=== PATIENT | female | born 1940 | race Caucasian/White ===

== ENCOUNTER 2023-09-13 02:32 | Emergency (ER) | payer OTHER, SELFPAY ==
[2023-09-13 02:34] VITALS: BP 187/86
[2023-09-13 02:35] VITALS: BP 187/86
[2023-09-13 02:44] VITALS: BMI 23.9
--- NOTE | 2023-09-13 02:52 | ED.MUSCINJ ---
Addendum entered and electronically signed by WILL Monte 09/13/23 09:54:
[facility] does see a medial tibial plateau fx. I left message on pt's voicemail requesting call back
Original Note:
HPI-Injury
<YOSELIN Murillo - Last Filed: 09/13/23 06:13>
General
Chief Complaint: Musculo-Skeletal Complaint
Source: patient
Exam Limitations: none
Time Seen by Provider: 09/13/23 02:41
Nursing documentation reviewed up to this point in time: agreed with
Travel History
Have you had any contact with someone who has COVID-19?: No
Do you have any symptoms of coronavirus? Fever > 100 degrees, chills, cough, shortness of breath, sore throat, loss of taste or smell, muscle aches, or headache?: No
History of Present Illness-Injury
Is this injury a work related problem?: No
Is pt an associate of [facility]?: No
Initial Injury comments:
This is a 83 year old female with history of DVT (on Apixaban for prophylaxis), hypothyroidism, HTN, RA, glaucoma who presents to the ED via ambulance due to a fall injury x1 day. She fell yesterday when she was opening her front door. She got
tangled with her walker causing her to fall down. She landed on her left knee on carpet. She was able to crawl to a nearby chair and lift herself up. She denies hitting her head or LOC. She is having pain and swelling with her left knee. She applied
ice and heat after that provided minimal relief. She took Tylenol around 6pm today. She is on Apixaban for DVT prophylaxis. Last DVT was in her RLE in 04/2022. Patient lives alone in her own house. She denies lightheadedness/dizziness, headache,
chest pain, shortness of breath.
Past History
<YOSELIN Murillo - Last Filed: 09/13/23 06:13>
Past History
ED Past Medical History: HTN, Hypothyroidism, Psychiatric (Anxiety), Other (Glaucoma, PVC's, RA, ) and Other (Chronic low back issues recently diagnosed rheumatoid arthritis. Extensive DVT)
ED Past Surgical History: Other (Left popliteal stent)
Social History
Tobacco: Non-smoker
Alcohol: None
Personal:
Living: alone
Family History
Family History: Negative Diabetes, Hypertension or CAD
Review of Systems
<YOSELIN Murillo - Last Filed: 09/13/23 06:13>
Review of Systems
Allergies reviewed?: Yes
All Other Systems: Not applicable
Constitutional: Reports no symptoms
EENT: Reports no symptoms
Respiratory: Reports no symptoms
Cardiac: Reports no symptoms
ABD/GI: Reports no symptoms
: Reports no symptoms
Musculoskeletal: Reports joint pain (Left knee) and joint swelling (Left knee)
Skin: Reports no symptoms
Neurological: Reports no symptoms
Endocrine: Reports no symptoms
Hematologic/Lymphatic: Reports no symptoms
Psychiatric: Reports no symptoms
Phy Exam
<YOSELIN Murillo - Last Filed: 09/13/23 06:13>
General Physical Exam
General Presentation: well appearing and no apparent distress
General Skin: warm and dry
General Habitus: normal
General Mental: alert
General Hydration: appears well hydrated
ENT Exam
ENT Exam: EOMI, pharynx normal, neck supple and normocephalic
Eye Exam
Eye Exam: PERRL, cornea clear and conjunctiva normal
Cardiovascular Exam
Cardiovascular Exam: regular rate/rhythm, no edema, no murmur and normal peripheral pulses
Pulmonary Exam
Pulmonary Exam: lungs clear, no respiratory distress, no rales, no crackles, no rhonchi, no stridor, no wheezing and no cough
Gastrointestinal Exam
Gastrointestinal Exam: normal bowel sounds, non tender, soft, no organomegaly, no pulsatile mass and non distended
Neurological Exam
Neurological Exam: alert, oriented x3, no motor deficits and speech normal
Musculoskeletal Exam
Musculoskeletal Exam: joint swelling (Medial aspect of left knee, limited L knee flexion) and other (TTP along medial aspect of left knee)
Skin Exam
Skin Exam: normal color, warm/dry, no rash and no petechia
Psychiatric Exam
Psychiatric Exam: normal mood/affect
Injury Course
<YOSELIN Murillo - Last Filed: 09/13/23 06:13>
Orders/Labs/Results
Orders:
Orders
09/13/23 03:02
CR Knee - Left 1 Or 2 Views Urgent
Comment:
Reason For Exam: Fall injury
09/13/23 03:04
HYDROmorphone [Dilaudid] 0.5 mg IM NOW STA
<Esme Gould DO - Last Filed: 09/13/23 06:14>
Orders/Labs/Results
Orders:
Orders
09/13/23 03:02
CR Knee - Left 1 Or 2 Views Urgent
Comment:
Reason For Exam: Fall injury
09/13/23 03:04
HYDROmorphone [Dilaudid] 0.5 mg IM NOW STA
<YOSELIN Murillo - Last Filed: 09/13/23 06:13>
MDM/Problems Addressed
Differential Diagnosis Includes:
Patellar dislocation vs knee sprain
<Esme Gould DO - Last Filed: 09/13/23 06:14>
*Radiology
Radiology exam reviewed: preliminary read by ED provider (X-ray shows mild to moderate DJD, mild joint effusion but no evidence of fracture.)
*Pulse Oximetry
Patient hypoxic: no
*Critical Care Note
Total Time (30-74mins, 75-104mins- exclusive of procedures): Not Applicable
ED Attending Note
<YOSELIN Murillo - Last Filed: 09/13/23 06:13>
-
Portions of this chart may have been created with voice recognition software.� Occasional wrong word or��sound alike� substitutions may have occurred due to the inherent limitations of voice recognition software.
<Esme Gould DO - Last Filed: 09/13/23 06:14>
ED Attending Note
Patient seen and examined by attending physician: Yes
I performed the substantive portion of visit, reviewed & personally made and approve the management plan that is documented in note by myself or ROB.: Yes
I performed a history and physical exam of patient and discussed management with resident, I reviewed resident's note and agree with documented findings and plan of care.: Yes
ED Attending Note:
This is an 83-year-old woman who resides at home, independently. 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 She has history of rheumatoid arthritis, ambulatory dysfunction and
chronically uses a walker to ambulate. Yesterday afternoon while using her walker, attempting to open the front door she lost her balance, falling to her left side and taking her walker with her, injuring her left knee which she states was
'underneath of her'
She denies head injury nor loss of consciousness. She was able to crawl to her chair and pull herself up and sit into her chair. She has been able to to ambulate with her walker since this afternoon but limited ambulation with significant left
knee pain with weightbearing. She took a dose of Tylenol around 8 PM before bed. She complains of persistent, increasing pain and swelling of her left knee.
She denies hip pain nor lower leg/calf pain. No foot pain, no numbness nor tingling. She denies back pain, no abdominal pain, no chest pain, no dizziness or lightheadedness.
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
this most recent fall.
TRAUMA EXAM:
VITAL SIGNS: Vital signs reviewed, cooperative
DISTRESS: No active disease
EYES: Pupils reactive, no orbital trauma
NOSE: No deformity or epistaxis
FACE AND SCALP: No scalp or facial trauma, external canals no blood
NECK: Supple nontender
BACK: Back nontender, pelvis stable to compression
RESPIRATORY: No distress, breath sounds normal, no tender chest wall
CARDIAC: No murmur, pulses equal and strong
ABDOMEN: Soft nontender bowel sounds normal
SKIN: Skin intact no bleeding, color normal
EXTREMITIES: There is mild to moderate effusion anteromedial aspect of the left knee with moderate tenderness about the left knee. Mildly restricted range of motion related to pain but no crepitus, no palpable bony abnormality, no gross
deformities. There is no tenderness to the thigh nor hip nor lower leg. Peripheral pulses are full and equal bilaterally. No clubbing nor cyanosis nor edema.
NEUROLOGICAL: Alert, oriented, no motor deficits
PSYCH: Mood affect normal
Concern for left knee strain/internal derangement, other consideration is fracture.
Will check x-ray.
Patient is neurovascularly intact, bright and alert, has full recollection of fall denying head injury and reports no headache thus CT of the head is not indicated.
As she is chronically maintained on Eliquis, NSAIDs are to be avoided.
Ice has been applied to left knee and will trial an IM dose of Dilaudid 0.5 mg.
09/13/2023 0606 AM
Patient resting comfortably, much more comfortable after an IM dose of Dilaudid.
X-ray shows no evidence of fracture nor dislocation. Mild to moderate DJD and mild joint effusion is noted.
She has been placed in a knee immobilizer.
Recommend continuing ice, elevation and will refer to orthopedics for follow-up.
Recommend she continue Tylenol as needed for mild pain and will add a short course of tramadol for moderate pain.
Discussed importance of continuing to use her walker while ambulating.
Discharge Plan
Departure
Patient Disposition: Home (Routine Discharge)
Date of Disposition: 09/13/23
Time of Disposition: 06:09
Patient with high blood pressure during this ER visit?: No
Condition: Good
Discharge Problem:
acute strain/sprain left knee
Instructions: Knee Immobilizer (DC), Knee Sprain ED
Prescriptions:
New
tramadol 50 mg tablet
50 mg PO BID PRN (Reason: Pain) Qty: 10 0RF
No Action
cetirizine 10 MG tablet
10 mg PO DAILYPRN PRN (Reason: allergies)
levothyroxine 112 MCG tablet
112 mcg PO DAILY
metoprolol succinate 50 MG tablet extended release 24 hr
50 mg PO DAILY
methotrexate sodium 2.5 MG tablet
25 mg PO TU
folic acid 1 MG tablet
1 mg PO DAILY
irbesartan 150 MG tablet
150 mg PO DAILY
brinzolamide 1 % drops,suspension
1 drp BOTH EYES BID
brimonidine-timolol 0.2-0.5 % drops
1 drp BOTH EYES BID
Rocklatan 0.02-0.005 % drops
1 drp BOTH EYES HS
Eliquis DVT-PE Treat 30D Start 5 mg (74 tabs) tablets,dose pack
See Rx Instructions .ROUTE .COMPLEX Qty: 74 0RF
Rx Instructions:
orally per package directions
Eliquis 5 mg tablet
10 mg PO BID 1 Days Qty: 4 0RF
prednisone 20 mg tablet
20 mg PO DAILY Qty: 4 0RF
Referrals:
Vikash Saldivar MD [Active] - Call in 1-3 days for appt
Sara Nolasco PA-C [Family Provider] - Call in 1-3 days for appt
Interventions
Interventions:
*Risk Screen - Suicide Last Done: 09/13/23 02:34
*General Assessment Last Done: 09/13/23 02:34
*Neglect/Abuse Screening Last Done: 09/13/23 02:34
ED- Fall Risk Assessment Last Done: 09/13/23 02:44
*ED COVID-19 Vaccine History Last Done: 09/13/23 02:44
ED-Musculoskeletal Assessment Last Done: 09/13/23 02:44
Discharge Date and Time
Print Language: MAURITIAN
[2023-09-13 03:00] VITALS: BP 177/86
[2023-09-13] MEDS: DILAUDID 0.5 MG IM (04:21)
[2023-09-13 04:25] VITALS: BP 177/71
[2023-09-13 05:00] VITALS: BP 167/72
[2023-09-13 06:00] VITALS: BP 165/78
== END 2023-09-13 07:00 | disposition home or self-care (01) ==
LOC: EMR 02:32
PROVIDERS: EMERGENCY PHYSICIAN Emergency Medicine; FAMILY PHYSICIAN Physician Assistant Medical
DX: S82.142A Displaced bicondylar fracture of left tibia, initial encounter for closed fracture (principal); W19.XXXA Unspecified fall, initial encounter; Z86.718 Personal history of other venous thrombosis and embolism; M06.9 Rheumatoid arthritis, unspecified
CPT/HCPCS: 99284; 29505; 96372; 73560

== ENCOUNTER → 2023-09-15 15:20 | Outpatient (REF) | payer OTHER, SELFPAY | LOC: HWRAD 15:20 | PROVIDERS: ATTENDING PHYSICIAN Orthopaedic Surgery; FAMILY PHYSICIAN Physician Assistant Medical | DX: M25.562 Pain in left knee (principal) | CPT/HCPCS: 73700 ==

== ENCOUNTER 2023-09-16 21:34 | Observation (INO) | payer OTHER, SELFPAY ==
[2023-09-16 16:32] VITALS: BP 159/78; BMI 21.6
[2023-09-16 18:32] VITALS: BP 151/69
--- NOTE | 2023-09-16 20:30 | ED.GENMED ---
History of Present Illness
General
Chief Complaint: Gait Dysfunction
Source: patient
Exam Limitations: none
Time Seen by Provider: 09/16/23 18:57
Nursing documentation reviewed up to this point in time: agreed with
Travel History
Have you had any contact with someone who has COVID-19?: No
Do you have any symptoms of coronavirus? Fever > 100 degrees, chills, cough, shortness of breath, sore throat, loss of taste or smell, muscle aches, or headache?: No
History of Present Illness
History of Present Illness:
Patient status post fall 4 days ago and evaluated in ED, with x-ray revealing medial tibial fracture. Patient was seen by an orthopedic surgeon, Dr. Ríos, yesterday, who advised nonweightbearing and CT ordered. Since then, patient reports
continued pain and unable to ambulate at home, as she lives alone. Denies new injury. Denies fever. Denies loss of sensation or weakness.
Past History
Past History
ED Past Medical History: HTN, Hypothyroidism, Psychiatric (Anxiety), Other (Glaucoma, PVC's, RA, ) and Other (Chronic low back issues recently diagnosed rheumatoid arthritis. Extensive DVT)
ED Past Surgical History: Other (Left popliteal stent)
Social History
Tobacco: Non-smoker
Alcohol: None
Personal:
Living: alone
Family History
Family History: Negative Diabetes, Hypertension or CAD
Review of Systems
Review of Systems
Allergies reviewed?: Yes
All Other Systems: ROS reviewed and negative except as documented in HPI and ROS
Constitutional: Reports no symptoms
ABD/GI: Reports no symptoms
: Reports no symptoms
Musculoskeletal: Reports other (Knee pain with swelling)
Skin: Reports no symptoms
Neurological: Reports no symptoms
Phy Exam
Physical Exam
Physical Exam:
Physical Exam
General: mild distress, not acutely ill. afebrile
Head: nc/at. eomi
Neck: supple. normal range of motion
Neuro: alert and oriented. no focal neurological deficits
Skin: no rash
Psychiatric: well kept. interactive and cooperative
Extremities: left knee: diffuse moderate swelling noted with moderate tenderness to palpation. limited ROM, due to pain.
Course
Orders/Labs/Results
Orders:
Orders
09/16/23 Dinner
Cholesterol Lowering
At Your Request: Full Participation
Cholesterol Lowering: Sodium, 2 Gram
09/16/23 20:27
Basic Metabolic Panel Urgent
Complete Blood Count/No Diff Urgent
09/16/23 20:42
Ice Pack-Treatment DIRECTED
Location: left knee
Acetaminophen [Tylenol] 1,000 mg PO NOW STA
09/16/23 21:04
Admit/Transfer Patient As Directed
Co-Sign Provider:
Level of Care: Observation services
Assign to:: Medical/Surgical
Physician / Group: ricky thomas
Diagnosis: left tibial plateau fx with amb dysfunction
Code Status As Directed
Resuscitation Status: Full Code
09/16/23 21:14
ORTHOPEDIC CONSULT Routine
Consulting Provider: Beth Ríos
Was physician already notified: Yes
Reason for consult: left tibial platuea fx
09/16/23 22:27
Bisacodyl [Dulcolax] 10 mg RECTAL [id number] PRN
Cetirizine HCl [Zyrtec] 10 mg PO HS
Docusate W/Senna [Senokot-S] 1 tablet PO BIDPRN PRN
Polyethylene Glycol Powder [Miralax] 17 grams PO DAILYPRN PRN
Tramadol HCl [Ultram] 50 mg PO BIDPRN PRN
netarsudil-latanoprost [Rocklatan] See Dose Instructions BOTH EYES HS
09/16/23 22:27
VTE Contraindication Routine
VTE Mechanical Device Contraindication: Medical Contraindication
Pharmocologic Contraindication: Medical Contraindication
Comment: pt on eliquis
Activity As Directed
Activity Level: With Assistance
Intake/ Output As Directed
Frequency: Per unit guidelines
Vital Signs As Directed
Frequency: Per unit guidelines
Ot Eval And Treat Routine
Pt Eval And Treat Routine
Activity Level: As Tolerated
09/17/23 00:00
Acetaminophen [Tylenol] 650 mg PO Q4HWA
09/17/23 06:00
Basic Metabolic Panel IN AM
Complete Blood Count/With Diff IN AM
Levothyroxine [Synthroid] 112 mcg PO DAILY @ 0600
09/17/23 08:00
Apixaban [Eliquis] 5 mg PO BID
Brimonidine Tartrate/Timolol [Combigan Eye Drops] See Dose Instructions BOTH EYES BID
Brinzolamide [Azopt 1% Ophthalmic Suspension] See Dose Instructions BOTH EYES BID
FOLic ACID [Folvite] 1 mg PO DAILY
Irbesartan [Avapro] 150 mg PO DAILY
Metoprolol Xl [Toprol Xl] 50 mg PO DAILY
09/23/23 08:00
Methotrexate Sodium [Methotrexate] 20 mg PO TH@0800
Abnormal Lab Results
09/16/23
20:27
RBC 3.68 L 10^6/uL
(4.20-5.40)
Hgb 11.5 L g/dL
(12.0-16.0)
Hct 33.9 L %
(37.0-47.0)
MCH 31.3 H pg
(27.0-31.0)
BUN 19 H mg/dl
(7-17)
Glucose 101 H mg/dl
(70-99)
09/16/23 20:27
09/16/23 20:27
Vital Signs
Initial and Last Documented VS:
Initial Vital Signs
Temp Pulse Resp BP Pulse Ox
97.8 F 75 16 159/78 100
09/16/23 16:32 09/16/23 16:32 09/16/23 16:32 09/16/23 16:32 09/16/23 16:32
Last Documented Vital Signs
Temp Pulse Resp BP Pulse Ox
97.7 F 76 16 157/69 98
09/16/23 22:20 09/16/23 22:20 09/16/23 22:20 09/16/23 22:20 09/16/23 22:20
MDM/Problems Addressed
MDM/Problems Addressed:
CT report preliminary, per radiology: Similar to x-ray findings, revealing tibial plateau fracture.
On-call orthopedic surgeon, Dr. Sneed, notified via [facility] text. Patient will require pain control, PT/OT evaluation, and potential transition to rehab facility, patient is unable to ambulate without assistance.
*Critical Care Note
Total Time (30-74mins, 75-104mins- exclusive of procedures): Not Applicable
ED Attending Note
-
Portions of this chart may have been created with voice recognition software.� Occasional wrong word or��sound alike� substitutions may have occurred due to the inherent limitations of voice recognition software.
Discharge Plan
Departure
Patient Disposition: Admit
Date of Disposition: 09/16/23
Time of Disposition: 20:44
Admit to: Med/Surg
Presentation/result/management discussed w/ accepting MD/DO: Hospitalist
Discharge Problem:
Closed fracture of tibial plateau
Interventions
Interventions:
*Risk Screen - Suicide Last Done: 09/16/23 16:32
*General Assessment Last Done: 09/16/23 20:13
*Neglect/Abuse Screening Last Done: 09/16/23 16:32
ED- Fall Risk Assessment Last Done: 09/16/23 16:32
*ED COVID-19 Vaccine History Last Done: 09/16/23 20:13
*Nursing Disposition Last Done: 09/16/23 22:15
ED-Musculoskeletal Assessment Last Done: 09/16/23 20:13
ED- Neurological Assessment Last Done: 09/16/23 20:13
Discharge Date and Time
Discharge Date/Time: 09/16/23 22:15
[2023-09-16 20:37] LABS: Hematocrit 33.9 % (37.0-47.0); Hemoglobin 11.5 g/dL (12.0-16.0); Mean Corp Hgb Conc. 33.9 g/dL (33.0-37.0); Mean Corpuscular Hgb 31.3 pg (27.0-31.0); Mean Corpuscular Volume 92.1 fL (81.0-99.0); Mean Platelet Volume 9.9 fL (7.4-10.4); Platelet Count 182 10^3/uL (130-400); Red Blood Cell Count 3.68 10^6/uL (4.20-5.40); Red Cell Dist. Width 14.1 % (11.5-14.5); White Blood Cell Count 7.4 10^3/uL (4.8-10.8)
--- NOTE | 2023-09-16 20:43 | HPS.HSE ---
Addendum entered and electronically signed by Brian Tobias DO 09/16/23 22:29:
Patient seen and examined independently. Agree with findings and plan as set forth by WILL Cote.
Patient is an 83y F with PMH significant for HTN, RA and prior DVTs who presents to ED for evaluation of L knee pain. Patient suffered a fall about 4 days ago and was seen here in the ED. X-rays done at that time were later revealed to show a
left medial tibial plateau fracture. Patent has since been seen by Ortho in the outpatient setting and a CT scan was done for confirmation. She has been instructed to remain non-weight bearing to the LLE for the next 4 weeks. Patient lives alone
and notes that she is not capable of functioning in her current condition.
Ass:
Left Medial Tibial Plateau Fracture
Ambulatory Dysfunction secondary to the above
Rheumatoid Arthritis
History of b/l LE DVTs
Benign Hypertension
Hypothyroidism
Glaucoma
Plan:
Observe for further evaluation and treatment.
Pain control, compression, cold application, elevation, etc.
Ortho evaluation - though non-surgical management has been recommended.
PT / OT evals.
CM evaluation for discharge planning / placement.
Continue usual home medications.
Continue Eliquis given prior h/o DVT and current high risk situation.
Original Note:
Family Physician
-
Family Physician: Sara Nolasco PA-C
Chief Complaint
-
Ambulatory dysfunction secondary to medial tibial plateau fracture
History of Present Illness
83-year-old female who fell 4 days ago while reaching for the door using her rollator which slipped to the side of her. She was evaluated in the ER revealing a left medial tibial plateau fracture. She was seen by orthopedic surgery yesterday
Khushbu who ordered a CT and advised nonweightbearing status. The patient reports she has had continued pain is unable to ambulate at home as she lives alone and typically uses a rollator to get around the house she denies any new falls or injury,
fever, chills, chest pain, palpitations, shortness breath, cough, abdominal pain, nausea, vomiting, diarrhea, urinary symptoms she is past medical history of hypertension, hypothyroidism, anxiety, glaucoma, PVCs, RA, chronic low back pain, extensive
left lower extremity DVT required tPA and Eliquis management May 2021, right leg DVT off Eliquis then was resumed, left popliteal stent
Medical History
Past Medical History
Past Medical History: Reports Other
Additional Past Medical History:
hypertension
hypothyroidism
anxiety
glaucoma,
PVCs,
RA
chronic low back pain,
extensive left lower extremity DVT required tPA and Eliquis management May 2021,
Right lower extremity DVT April 2022 when off Eliquis
left popliteal stent
History of multiple left knee dislocations last being in the 1980s
Chronic ambulatory dysfunction uses rollator at baseline
Past Surgical History: Reports Other
Additional Past Surgical History:
left popliteal stent
Social History
Tobacco: Non-smoker
Alcohol: None
Personal:
Living: Alone
Employment: Retired
Family History
Family History: Other (Mother age 76 [place], CVA father age 80 from viral infection)
Allergies / Home Medications
Allergies reflects when Allergies were last updated in [facility].
Home Medications with original date entered in [facility]
Allergy/Medication List:
Allergies
Allergy/AdvReac Type Severity Reaction Status Date / Time
Penicillins Allergy Unknown Hives - Verified 09/16/23 16:37
tolerated
cefazolin
May
Home Medications
cetirizine 10 mg tablet 10 mg PO HS 12/03/11
levothyroxine 112 mcg tablet 112 mcg PO DAILY Thyroid 12/03/11
folic acid 1 mg tablet 1 mg PO DAILY Supplement 05/13/21
irbesartan 150 mg tablet 150 mg PO DAILY Blood pressure 05/13/21
methotrexate sodium 2.5 mg tablet 20 mg PO TH Rheumatoid arthritis 05/13/21
metoprolol succinate 50 mg tablet,extended release 24 hr 50 mg PO DAILY Heart disease/condition 05/13/21
brimonidine 0.2 %-timolol 0.5 % eye drops 1 drp BOTH EYES BID Eye condition 04/08/22
brinzolamide 1 % eye drops,suspension 1 drp BOTH EYES BID Eye condition 04/08/22
netarsudil 0.02 %-latanoprost 0.005 % eye drops (Rocklatan) 1 drp BOTH EYES HS Eye condition 04/08/22
apixaban 5 mg tablet (Eliquis) 5 mg PO BID 09/16/23
tramadol 50 mg tablet 50 mg PO BID PRN Moderate Pain 09/16/23
Review of Systems
-
History Source: Patient and Family (Daughter)
A 12 point ROS was completed and negative except as noted: Yes
Constitutional: Denies Fever or Chills
EENT: Denies Sore Throat or Runny Nose
Respiratory: Denies Cough or Trouble Breathing
Cardiac: Denies Chest Pain, Diaphoresis, Palpitations or Syncope
Abdomen/GI: Denies Abdominal Pain, Nausea, Vomiting, Diarrhea, Constipated, Bloody Stools or Black Stools
: Denies Dysuria, Frequency, Flank Pain, Incontinence, Difficulty Voiding or Urgency
Musculoskeletal: Reports Joint Pain (Left knee) and Joint Swelling (Left knee); Denies Edema
Skin: Denies Itching or Rash
Neurological: Denies Dizzy or Headache
Endocrine: Reports No Symptoms
Hematologic/Lymphatic: Reports No Symptoms
Psych: Reports Calm
Physical Exam
Vital Signs
Vital Signs
Temp Pulse Resp BP Pulse Ox
98 F 72 18 151/69 100
09/16/23 18:32 09/16/23 18:32 09/16/23 18:32 09/16/23 18:32 09/16/23 18:32
Physical Exam
General: Comfortable and Conversant; No Fever or Chills
HEENT: NormoCephalic, Anicteric, Moist mucous membranes, PERRLA, [place] Conjunctivae and No Ptosis
Respiratory: Clear; No Wheezes, Rales or Rhonchi
Cardiac: S1/S2 and Regular Rhythm; No Murmur, Rub, Gallop or Peripheral Edema
Breast: Deferred by me
GI: Soft, Non Tender, Non Distended, Normal Bowel Sounds and No Hepatosplenomegaly
Rectal: Deferred by Provider
Genito-urinary: Deferred by me
Musculoskeletal: No Clubbing, No Cyanosis and Edema, Left Lower Extremity (Swelling medial aspect of left knee with resolving ecchymosis yellow in color, chronic arthritic swelling of right knee with limited full extension); No Edema, Left Upper
Extremity or Edema, Right Upper Extremity
Skin: Warm and Dry; No Rash or Jaundice
Neuro: AO x 3, Nonfocal/grossly intact, Cranial Nerves Intact, No Sensory Deficits and Other (Acute on chronic ambulatory dysfunction secondary to left tibial plateau fracture); No Slurred Speech, Facial Droop or Tremors
Psych: Calm
Laboratory Results
-
09/16/23 20:27
Impression/Plan
-
Impression/plan:
Observation MedSurg
#Left knee medial tibial plateau fracture with ambulatory dysfunction secondary to fall days ago
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
-Nonweightbearing left knee
-CT left knee pending was seen by Dr. Khushbu Dickson
consult ortho
-Continue Tylenol and patient's tramadol for pain with bowel regimen
-Consult PT/OT/case management for SNF placement
#RA
#Chronic back pain
-Continue methotrexate 20mg on , prednisone 20 mg daily, tramadol 50 mg twice daily
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
Hx DVT right lower extremity April 2022 off Eliquis
Left lower extremity required directed tPA
-Continue MACHINE PULLER Eliquis 5 mg twice daily
#Hx left popliteal stent
#HTN-benign
151/69
-Continue irbesartan 150 mg daily, metoprolol succinate 50 mg daily
#Hypothyroidism
-Continue levothyroxine
#Seasonal allergies
Continue cetirizine 10 mg at bedtime
#Glaucoma
-Continue eyedrops
DVT prophylaxis
Continue MACHINE PULLER Eliquis
Full code
[2023-09-16] MEDS: TYLENOL 1000 MG PO (20:47)
[2023-09-16 20:52] LABS: Blood Urea Nitrogen 19 mg/dl (7-17); Calcium 9.1 mg/dl (8.4-10.2); Carbon Dioxide 26 mmol/L (22-30); Chloride 104 mmol/L (98-107); Estimated Creatinine Clearance 48 ml/min; Glucose 101 mg/dl (70-99); Potassium 4.4 mmol/L (3.5-5.1); Sodium 137 mmol/L (135-145); eGFR > 60.00
[2023-09-16 22:20] VITALS: BP 157/69; BMI 24.5
[2023-09-16] MEDS: ZYRTEC 10 MG PO (23:01)
[2023-09-16] MEDS: ELIQUIS 5 MG PO (23:01)
--- NOTE | 2023-09-16 23:10 | TRANSFER ---
pt arrived from ED at 2220 dx left tibial plateau fx, daughter at bedside. C/o 3/10 pain to left knee but stated pt received tylenol in ED w relief. +1 edema noted to left knee, + CMS to left foot. Oriented to room & use of call hernandez. Assessment
ongoing.
[2023-09-17] MEDS: TYLENOL 650 MG PO ×5 (00:23→20:00)
[2023-09-17] MEDS: TYLENOL PO ×2 (05:00→23:34)
[2023-09-17] MEDS: SYNTHROID 112 MCG PO (05:22)
[2023-09-17 05:37] LABS: % Basophils 0.8 % (0-2); % Immature Granulocytes 0.9 % (0-0.5); % Lymphocytes 16.5 % (20.5-51.1); % Monocytes 9.6 % (1.7-9.3); % Neutrophils 70.2 % (42.2-75.2); Absolute Basophils 0.1 10^3/uL (0-0.2); Absolute Eosinophils 0.1 10^3/uL (0-0.7); Absolute Immature Granulocytes 0.1 10^3/uL (0-0.05); Absolute Lymphocytes 1.1 10^3/uL (1.2-3.4); Absolute Monocytes 0.6 10^3/uL (0.1-0.6); Absolute Neutrophils 4.5 10^3/uL (1.4-6.5); Hematocrit 30.3 % (37.0-47.0); Hemoglobin 10.2 g/dL (12.0-16.0); Mean Corp Hgb Conc. 33.7 g/dL (33.0-37.0); Mean Corpuscular Hgb 30.6 pg (27.0-31.0); Mean Platelet Volume 10.2 fL (7.4-10.4); Nucleated Red Blood Cells % 0 %; Platelet Count 161 10^3/uL (130-400); Red Blood Cell Count 3.33 10^6/uL (4.20-5.40); Red Cell Dist. Width 13.9 % (11.5-14.5); White Blood Cell Count 6.4 10^3/uL (4.8-10.8)
[2023-09-17 06:06] LABS: Blood Urea Nitrogen 18 mg/dl (7-17); Calcium 8.6 mg/dl (8.4-10.2); Carbon Dioxide 23 mmol/L (22-30); Chloride 106 mmol/L (98-107); Estimated Creatinine Clearance 48 ml/min; Glucose 91 mg/dl (70-99); Potassium 3.9 mmol/L (3.5-5.1); Sodium 134 mmol/L (135-145); eGFR > 60.00
--- NOTE | 2023-09-17 07:36 | W.PN.UPDATE ---
Update Note
Progress Note Update
83-year-old female recently seen by the orthopedic surgery service for acute left knee pain with suspected nondisplaced tibial plateau fracture. She was readmitted secondary to pain and difficulty with performing activities of daily living with
increased risk for injury. She reports pain is slightly improved.
-Pending definitive CT read; if negative for fracture can consider earlier weightbearing
-At this time continue left lower extremity with toe-touch weightbearing
-PT/OT for discharge planning
-Orthopedic surgery will continue to follow until definitive results from CT scan with updated recommendations; there is no concern for acute fracture can consider earlier weightbearing
[2023-09-17 07:45] VITALS: BP 139/69
[2023-09-17] MEDS: AZOPT 1% OPHTHALMIC SUSPENSION 1 DROP BOTH EYES ×2 (09:48→20:01)
[2023-09-17] MEDS: ELIQUIS 5 MG PO ×2 (09:49→19:59)
[2023-09-17] MEDS: COMBIGAN EYE DROPS 1 DROP BOTH EYES ×2 (09:49→20:01)
[2023-09-17] MEDS: FOLVITE 1 MG PO (09:49)
[2023-09-17] MEDS: TOPROL XL 50 MG PO (09:49)
[2023-09-17] MEDS: AVAPRO 150 MG PO (09:50)
--- NOTE | 2023-09-17 10:03 | CM ---
Addendum entered by Sara Park RN 09/17/23 13:02:
CM spoke with the patient's daughter via telephone. Referrals sent via [facility]. Precert will be required.
Original Note:
Reviewed the chart notes and spoke with the patient at the bedside. The patient is being admitted under observational status. YANCEY letter provided and explained. The patient had no questions with regards to the letter.
The patient resides alone in a two story home with a ramp to enter. The patient has a rolling walker, shower chair and shower rails. The patient confirmed her pharmacy of choice is the [facility] [address] [facility]. The patient has had [facility] in
the past, but no SNF. Patient to evaluated by PT/OT. CM continues to be available to patient/family and is monitoring medical plan for needs at discharge.
Plan: Discharge plans will depend on the patient's progress.
--- NOTE | 2023-09-17 13:25 | CON.ORTHO ---
Consultation - Orthopedics
History
Patient is an 83-year-old female who presents to the ED secondary to left knee pain. She was recently seen in clinic for this issue. Over the weekend, she sustained a fall. X-rays were suspicious for a tibial plateau fracture. She subsequently
underwent a CT. She was told to remain nonweightbearing of the left lower extremity. She lives at home alone. Her daughter is currently visiting from out of state. Due to an inability to care for self at home, she presented to the ED. She
reports that her left knee pain has been gradually improving. She has been remaining nonweightbearing of the left lower extremity. She denies any numbness or tingling of the left lower extremity. No other complaints at this time.
Allergies / Home Medications
Allergy/AdvReac Type Severity Reaction Status Date / Time
Penicillins Allergy Hives - Verified 09/16/23 22:04
tolerated
cefazolin
May
�Medication �Instructions �Recorded
cetirizine 10 mg tablet 10 mg PO HS 12/03/11
levothyroxine 112 mcg tablet 112 mcg PO DAILY Thyroid 12/03/11
folic acid 1 mg tablet 1 mg PO DAILY Supplement 05/13/21
irbesartan 150 mg tablet 150 mg PO DAILY Blood pressure 05/13/21
methotrexate sodium 2.5 mg tablet 20 mg PO TH Rheumatoid arthritis 05/13/21
metoprolol succinate 50 mg 50 mg PO DAILY Heart 05/13/21
tablet,extended release 24 hr disease/condition
brimonidine 0.2 %-timolol 0.5 % 1 drp BOTH EYES BID Eye condition 04/08/22
eye drops
brinzolamide 1 % eye 1 drp BOTH EYES BID Eye condition 04/08/22
drops,suspension
netarsudil 0.02 %-latanoprost 1 drp BOTH EYES HS Eye condition 04/08/22
0.005 % eye drops (Rocklatan)
apixaban 5 mg tablet (Eliquis) 5 mg PO BID 09/16/23
tramadol 50 mg tablet 50 mg PO BID PRN Moderate Pain 09/16/23
Vital Signs / Lab Results
Temp Pulse Resp BP Pulse Ox
97.7 F 68 17 139/69 96
09/17/23 07:45 09/17/23 07:45 09/17/23 07:45 09/17/23 07:45 09/17/23 07:45
09/17/23 04:49
09/17/23 04:49
MSK:
Mild swelling and tenderness elicited on palpation of the left medial tibial plateau
Range of motion of the knee is intact but diminished due to pain
Painless range of motion of the left ankle
Sensation intact at the left lower extremity grossly
DP pulse 1+
Ligamentous examination of the knee not able to be performed secondary to pain
CT left lower extremity: CT of the left knee was reviewed. Images demonstrate a minimally displaced fracture at the left medial tibial plateau. This correlates to patient's region of pain and discomfort.
Assessment / Plan
Assessment:
Closed minimally displaced left medial tibial plateau fracture
Plan:
Left lower extremity nonweightbearing
Hinged knee brace to left lower extremity (open for range of motion)
Weightbearing of the left lower extremities for transfers only
PT/OT
DVT prophylaxis
Pain control
Elevate left lower extremity
Patient lives at home by herself. She is unable to take care of herself due to her injury. She will require placement at a facility
Follow-up in clinic in 4 weeks
Please call with questions
--- NOTE | 2023-09-17 16:19 | W.PN.UPDATE ---
Update Note
Progress Note Update
CT read by Dr. Ríos- recommend maintaining toe touch weight bearing and open hinged knee brace.
--- NOTE | 2023-09-17 16:38 | W.PN.HOSP.TC ---
Today's Communication/Plan
-
.
Assessment / Plan
Assessment / Plan
Physical Exam
General: Comfortable and Conversant; No Fever or Chills
HEENT: NormoCephalic, Anicteric, Moist mucous membranes, PERRLA, [place] Conjunctivae and No Ptosis
Respiratory: Clear; No Wheezes, Rales or Rhonchi
Cardiac: S1/S2 and Regular Rhythm; No Murmur, Rub, Gallop or Peripheral Edema
GI: Soft, Non Tender, Non Distended, Normal Bowel Sounds and No Hepatosplenomegaly
Rectal: No rectal bleeding
Genito-urinary: No Sullivan
Musculoskeletal: No Clubbing, No Cyanosis and Edema,
Skin: Warm and Dry; No Rash or Jaundice
Neuro: AO x 3, Nonfocal/grossly intact,
Psych: Calm
#Left knee medial tibial plateau fracture with ambulatory dysfunction secondary to fall days ago
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
- Closed minimally displaced left medial tibial plateau fracture
-Nonweightbearing left knee
-CT left knee pending was seen by Dr. Khushbu Dickson
consult ortho
-Continue Tylenol and patient's tramadol for pain with bowel regimen
-Consult PT/OT/case management for SNF placement
# Hyponatremia, mild.
#RA
#Chronic back pain
-Continue methotrexate 20mg on , prednisone 20 mg daily, tramadol 50 mg twice daily
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
Hx DVT right lower extremity April 2022 off Eliquis
Left lower extremity required directed tPA
-Continue ASSISTANT COOK Eliquis 5 mg twice daily
#Hx left popliteal stent
#HTN-benign
151/69
-Continue irbesartan 150 mg daily, metoprolol succinate 50 mg daily
#Hypothyroidism
-Continue levothyroxine
#Seasonal allergies
Continue cetirizine 10 mg at bedtime
#Glaucoma
-Continue eyedrops
DVT prophylaxis
Continue ASSISTANT COOK Eliquis
Full code
Total time spent to see the patient, examine the patient on the floor, review data and lab results, discuss treatment plan with patient and nursing staff around 55 minutes
Anticipated Discharge: 24 - 48 hours
Subjective/Interval History
-
Date of Service: September 17, 2023
Less pain in leg
No chest pain or sob
Objective Data
-
Labs:
Laboratory Results
09/17/23
04:49
WBC 6.4
Hgb 10.2 L
Hct 30.3 L
Plt Count 161
Sodium 134 L
Potassium 3.9
Chloride 106
Carbon Dioxide 23
BUN 18 H
Creatinine 0.8
Glucose 91
Calcium 8.6
Vital Signs:
Vital Signs
Temp Pulse Resp BP Pulse Ox
97.7 F 68 17 139/69 96
09/17/23 07:45 09/17/23 07:45 09/17/23 07:45 09/17/23 07:45 09/17/23 07:45
I&O
09/16/23 09/17/23 09/18/23
06:59 06:59 06:59
Intake Total 240 / 240
Balance 240 / 240
[2023-09-17 16:44] VITALS: BP 138/55
[2023-09-17] MEDS: ZYRTEC 10 MG PO (21:47)
[2023-09-17] MEDS: NON-FORMULARY ITEM 1 DROP BOTH EYES (21:47)
[2023-09-17 23:41] VITALS: BP 124/68
[2023-09-18] MEDS: SYNTHROID 112 MCG PO (06:14)
[2023-09-18] MEDS: TYLENOL 650 MG PO ×5 (06:15→20:16)
[2023-09-18 07:18] VITALS: BP 142/70
[2023-09-18] MEDS: AVAPRO 150 MG PO (08:58)
[2023-09-18] MEDS: FOLVITE 1 MG PO (08:58)
[2023-09-18] MEDS: ELIQUIS 5 MG PO ×2 (08:58→20:17)
[2023-09-18] MEDS: TOPROL XL 50 MG PO (08:58)
[2023-09-18] MEDS: COMBIGAN EYE DROPS 1 DROP BOTH EYES ×2 (08:58→20:15)
[2023-09-18] MEDS: AZOPT 1% OPHTHALMIC SUSPENSION 1 DROP BOTH EYES ×2 (08:59→20:15)
--- NOTE | 2023-09-18 09:29 | W.PN.HOSP.TC ---
Today's Communication/Plan
-
Await DC planning
Assessment / Plan
Assessment / Plan
Physical Exam
General: Comfortable and Conversant; No Fever or Chills
HEENT: NormoCephalic, Anicteric, Moist mucous membranes, PERRLA, [place] Conjunctivae and No Ptosis
Respiratory: Clear; No Wheezes, Rales or Rhonchi
Cardiac: S1/S2 and Regular Rhythm; No Murmur, Rub, Gallop or Peripheral Edema
GI: Soft, Non Tender, Non Distended, Normal Bowel Sounds and No Hepatosplenomegaly
Rectal: No rectal bleeding
Genito-urinary: No Sullivan
Musculoskeletal: No Clubbing, No Cyanosis and Edema,
Skin: Warm and Dry; No Rash or Jaundice
Neuro: AO x 3, Nonfocal/grossly intact,
Psych: Calm
#Left knee medial tibial plateau fracture with ambulatory dysfunction secondary to fall days ago
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
- Closed minimally displaced left medial tibial plateau fracture
- per Dr. Ríos- recommended maintaining toe touch weight bearing and open hinged knee brace. NWB LLE, but may partially WB for transfers only
-Continue Tylenol and patient's tramadol for pain with bowel regimen
-Consult PT/OT/case management for SNF placement
# Hyponatremia, mild.
# Mild acute blood loss anemia due to fracture
No hemodynamic instability
#RA
#Chronic back pain
-Continue methotrexate 20mg on , prednisone 20 mg daily, tramadol 50 mg twice daily
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
Hx DVT right lower extremity April 2022 off Eliquis
Left lower extremity required directed tPA
-Continue BREWER HELPER Eliquis 5 mg twice daily
#Hx left popliteal stent
#HTN-benign
142/70 this morning. -Continue irbesartan 150 mg daily, metoprolol succinate 50 mg daily
#Hypothyroidism
-Continue levothyroxine
#Seasonal allergies
Continue cetirizine 10 mg at bedtime
#Glaucoma
-Continue eyedrops
DVT prophylaxis
Continue BREWER HELPER Eliquis
Full code
Total time spent to see the patient, examine the patient on the floor, review data and lab results, discuss treatment plan with patient and nursing staff around 45 minutes
Anticipated Discharge: Within 24 hours
Subjective/Interval History
-
Date of Service: September 18, 2023
No issues over night
No chest pain or sob or abd pain
Tolerating diet well
Objective Data
-
Vital Signs:
Vital Signs
Temp Pulse Resp BP Pulse Ox
98.4 F 73 17 142/70 98
09/18/23 07:18 09/18/23 07:18 09/18/23 07:18 09/18/23 08:58 09/18/23 07:18
I&O
09/17/23 09/18/23 09/19/23
06:59 06:59 06:59
Intake Total 240 / 240 1200 / 1200
Balance 240 / 240 1200 / 1200
[2023-09-18 12:26] VITALS: BP 144/66; BP 149/63; PULSE 69
--- NOTE | 2023-09-18 12:36 | CM ---
Addendum entered by Zully Mcnair 09/18/23 16:18:
Discussed with Becca @ admissions, she verified with her team and states bed will be available for pt Wednesday.
Auth initiated with [employer] in [facility]. Certification # [id number].
Clinicals faxed to [phone].
Goal: BV pending [employer] auth.
Original Note:
CM following re: d/c planning.
Per med team, pt nearing d/c and ready for placement.
Refs sent to several SNFs.
At this time, the only one offering a bed is [facility] (per [employer]).
Call placed to [facility], awaiting call back to confirm bed availability and obtain NPIs for auth.
CM met with pt at bedside, daughter on the line also via speakerphone.
They are agreeable to the bed at [facility] and would like to proceed.
CM will continue to provide updates.
Goal: SNF, pending bed confirmation and auth approval via [employer].
[2023-09-18 15:32] VITALS: BP 124/59
[2023-09-18] MEDS: ZYRTEC 10 MG PO (22:03)
[2023-09-18] MEDS: NON-FORMULARY ITEM 1 DROP BOTH EYES (22:03)
[2023-09-18 23:32] VITALS: BP 120/59
[2023-09-18] MEDS: TYLENOL PO (23:48)
[2023-09-19] MEDS: TYLENOL PO (04:11)
[2023-09-19 06:00] VITALS: BMI 24.6
[2023-09-19] MEDS: SYNTHROID 112 MCG PO (06:20)
[2023-09-19] MEDS: TYLENOL 650 MG PO ×5 (06:20→23:29)
[2023-09-19 07:50] VITALS: BP 137/56
[2023-09-19] MEDS: TOPROL XL 50 MG PO (08:25)
[2023-09-19] MEDS: AZOPT 1% OPHTHALMIC SUSPENSION 1 DROP BOTH EYES ×2 (08:26→20:42)
[2023-09-19] MEDS: AVAPRO 150 MG PO (08:26)
[2023-09-19] MEDS: ELIQUIS 5 MG PO ×2 (08:26→20:42)
[2023-09-19] MEDS: FOLVITE 1 MG PO (08:26)
[2023-09-19] MEDS: COMBIGAN EYE DROPS 1 DROP BOTH EYES ×2 (08:26→20:42)
--- NOTE | 2023-09-19 10:43 | W.PN.HOSP.TC ---
Today's Communication/Plan
-
dc planning
Assessment / Plan
Assessment / Plan
Physical Exam
General: Comfortable and Conversant; No Fever or Chills
HEENT: NormoCephalic, Anicteric, Moist mucous membranes, PERRLA, [place] Conjunctivae and No Ptosis
Respiratory: Clear; No Wheezes, Rales or Rhonchi
Cardiac: S1/S2 and Regular Rhythm; No Murmur, Rub, Gallop or Peripheral Edema
GI: Soft, Non Tender, Non Distended, Normal Bowel Sounds and No Hepatosplenomegaly
Rectal: No rectal bleeding
Genito-urinary: No Sullivan
Musculoskeletal: No Clubbing, No Cyanosis and Edema, Boot - knee stabilizer LLE.
Skin: Warm and Dry; No Rash or Jaundice
Neuro: AO x 3, Nonfocal/grossly intact,
Psych: Calm
#Left knee medial tibial plateau fracture with ambulatory dysfunction secondary to fall
on Boot - knee stabilizer LLE.
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
- Closed minimally displaced left medial tibial plateau fracture
- per Dr. Ríos- recommended maintaining toe touch weight bearing and open hinged knee brace. NWB LLE, but may partially WB for transfers only
-Continue Tylenol, she reports Tylenol is enough for her pain..
-Consult PT/OT/case management for SNF placement
- plan to dc to [facility] when bed is avalilable.
# Hyponatremia, mild.
# Mild acute blood loss anemia due to fracture
No hemodynamic instability
#RA
#Chronic back pain
-Continue methotrexate 20mg on , prednisone 20 mg daily, tramadol 50 mg twice daily
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
Hx DVT right lower extremity April 2022 off Eliquis
Left lower extremity required directed tPA
-Continue SUPERVISING FIRE MARSHAL Eliquis 5 mg twice daily
#Hx left popliteal stent
#HTN-benign
142/70 this morning. -Continue irbesartan 150 mg daily, metoprolol succinate 50 mg daily
#Hypothyroidism
-Continue levothyroxine
#Seasonal allergies
Continue cetirizine 10 mg at bedtime
#Glaucoma
-Continue eyedrops
DVT prophylaxis
Continue SUPERVISING FIRE MARSHAL Eliquis
Full code
Total time spent to see the patient, examine the patient on the floor, review data and lab results, discuss treatment plan with patient and nursing staff around 45 minutes
Anticipated Discharge: Within 24 hours
Subjective/Interval History
-
Date of Service: September 19, 2023
no complaints
Pain in leg is controlled with Tylenol only
Objective Data
-
Vital Signs:
Vital Signs
Temp Pulse Resp BP Pulse Ox
97.6 F 63 18 137/56 97
09/19/23 07:50 09/19/23 07:50 09/19/23 07:50 09/19/23 08:25 09/19/23 07:50
I&O
09/18/23 09/19/23 09/20/23
06:59 06:59 06:59
Intake Total 1200 / 1200 920 / 920
Balance 1200 / 1200 920 / 920
[2023-09-19 13:15] VITALS: BP 113/81; BP 141/67; PULSE 67
[2023-09-19 15:30] VITALS: BP 125/58
--- NOTE | 2023-09-19 16:18 | CM ---
CM received message from [employer] with auth approval for [facility] for tomorrow
Ref# [id number] 13 days
09/19-10/01 NRD 10/03 Ellyn [phone] (p) [phone] (f)
[2023-09-19] MEDS: NON-FORMULARY ITEM 1 DROP BOTH EYES (22:54)
[2023-09-19] MEDS: ZYRTEC 10 MG PO (22:57)
[2023-09-19 23:00] VITALS: BP 124/54
[2023-09-20] MEDS: TYLENOL 650 MG PO ×4 (04:00→16:59)
[2023-09-20] MEDS: SYNTHROID 112 MCG PO (05:00)
[2023-09-20 07:45] VITALS: BP 136/67
--- NOTE | 2023-09-20 08:53 | W.PN.HOSP.TC ---
Today's Communication/Plan
-
Discharge planning today.
Assessment / Plan
Assessment / Plan
Physical Exam
General: Comfortable and Conversant; No Fever or Chills
HEENT: NormoCephalic, Anicteric, Moist mucous membranes, PERRLA, [place] Conjunctivae and No Ptosis
Respiratory: Clear; No Wheezes, Rales or Rhonchi
Cardiac: S1/S2 and Regular Rhythm; No Murmur, Rub, Gallop or Peripheral Edema
GI: Soft, Non Tender, Non Distended, Normal Bowel Sounds and No Hepatosplenomegaly
Rectal: No rectal bleeding
Genito-urinary: No Sullivan
Musculoskeletal: No Clubbing, No Cyanosis and Edema, Boot - knee stabilizer LLE.
Skin: Warm and Dry; No Rash or Jaundice
Neuro: AO x 3, Nonfocal/grossly intact,
Psych: Calm
A/P:
#Left knee medial tibial plateau fracture with ambulatory dysfunction secondary to fall
on Boot - knee stabilizer LLE.
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
- Closed minimally displaced left medial tibial plateau fracture
- per Dr. Ríos- recommended maintaining toe touch weight bearing and open hinged knee brace. NWB LLE, but may partially WB for transfers only
-Continue Tylenol, she reports Tylenol is enough for her pain..
-Consult PT/OT/case management for SNF placement
- plan to dc to [facility] when bed is available. Possible discharge today.
# Hyponatremia, mild.
# Mild acute blood loss anemia due to fracture
No hemodynamic instability
#RA
#Chronic back pain
-Continue methotrexate 20mg on , prednisone 20 mg daily, tramadol 50 mg twice daily
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
Hx DVT right lower extremity April 2022 off Eliquis
Left lower extremity required directed tPA
-Continue DURABILITY ENGINEER Eliquis 5 mg twice daily
#Hx left popliteal stent
#HTN-benign
Blood pressure stable this morning. -Continue irbesartan 150 mg daily, metoprolol succinate 50 mg daily
#Hypothyroidism
-Continue levothyroxine
#Seasonal allergies
Continue cetirizine 10 mg at bedtime
#Glaucoma
-Continue eyedrops
DVT prophylaxis
Continue DURABILITY ENGINEER Eliquis
Full code
Anticipated Discharge: Today
Subjective/Interval History
-
Date of Service: September 20, 2023
Patient denies any chest pain or shortness of breath. Mild knee discomfort.
Objective Data
-
Vital Signs:
Vital Signs
Temp Pulse Resp BP Pulse Ox
98.4 F 72 16 136/67 98
09/20/23 07:45 09/20/23 07:45 09/20/23 07:45 09/20/23 07:45 09/20/23 07:45
I&O
09/19/23 09/20/23 09/21/23
06:59 06:59 06:59
Intake Total 920 / 920 1200 / 1200
Balance 920 / 920 1200 / 1200
[2023-09-20] MEDS: AVAPRO 150 MG PO (09:29)
[2023-09-20] MEDS: COMBIGAN EYE DROPS 1 DROP BOTH EYES (09:29)
[2023-09-20] MEDS: AZOPT 1% OPHTHALMIC SUSPENSION 1 DROP BOTH EYES (09:29)
[2023-09-20] MEDS: TOPROL XL 50 MG PO (09:30)
[2023-09-20] MEDS: ELIQUIS 5 MG PO (09:30)
[2023-09-20] MEDS: FOLVITE 1 MG PO (09:30)
--- NOTE | 2023-09-20 11:43 | CM ---
Addendum entered by Becca Verdugo 09/20/23 15:06:
[facility]
Report [phone]

Original Note:
area plant manager reviewed patient's chart and patient has been approved by insurance for skilled placement at [facility] correctional case manager will await medical clearance to proceed with skilled placement.
Plan; Skilled placement at [facility] when stable.
--- NOTE | 2023-09-20 14:27 | W.DCSUMMARY ---
Discharge Summary
Discharge Data
Date of Admission: 09/16/23
Date of Discharge: 09/20/23
-
Pending Results: No
Hospital Course
Patient 83 years old female with history of rheumatoid arthritis, osteoarthritis, DVTs, hypertension, hypothyroidism, presented to the hospital for ambulatory dysfunction and left knee pain. Patient found to have a tibial fracture at the level of
the knee confirmed by x-ray and CT scan. Orthopedic consulted. Ortho recommended to continue nonweightbearing on the left lower extremity and hinged knee brace but can have weightbearing of the left lower extremity for transfers only. They
recommended continue pain control, continue her oral anticoagulation and this will take care of DVT prophylaxis, and continue PT OT eval. Patient recommended to go to rehab. Patient is going to be discharged in stable condition to rehab today.
Discharge duration: 32 minutes
Discharge Plan
-
Patient Disposition: [facility]/SNF
Discharge Diagnosis/Procedures: -Left knee medial tibial plateau fracture with ambulatory dysfunction secondary to fall
on Boot -knee stabilizer LLE.
- per Dr. Ríos- recommended maintaining toe touch weight bearing and open hinged knee brace. NWB LLE, but may partially WB for transfers only
Diet: As tolerated
Activity: Other activity
Additional Activity: As instructed by orthopedic.
Blood Work: Please PCP to order CBC, BMP within 1 week
Referrals:
Beth Ríos DO [Active] - in two to three weeks
Sara Nolasco PA-C [Family Provider] - in less than 1 week
Prescriptions:
Continued
cetirizine 10 MG tablet
10 mg PO HS
levothyroxine 112 MCG tablet
112 mcg PO DAILY
metoprolol succinate 50 MG tablet extended release 24 hr
50 mg PO DAILY
methotrexate sodium 2.5 MG tablet
20 mg PO TH
folic acid 1 MG tablet
1 mg PO DAILY
irbesartan 150 MG tablet
150 mg PO DAILY
brinzolamide 1 % drops,suspension
1 drp BOTH EYES BID
brimonidine-timolol 0.2-0.5 % drops
1 drp BOTH EYES BID
Rocklatan 0.02-0.005 % drops
1 drp BOTH EYES HS
Eliquis 5 mg tablet
5 mg PO BID
tramadol 50 mg tablet
50 mg PO BID PRN (Reason: Moderate Pain) Qty: 4 0RF
Patient Comments:
09/16/2023: last filled 09/13/23, 10 tabs for 5 days from [facility]
Discharge Orders:
Discharge Patient (As Directed); Ordered 09/20/23
Ordered By: Francisco Mckeon
Discharge Date and Time
Discharge Date/Time: 09/20/23 17:57
Print Language: GUINEAN
[2023-09-20 14:50] VITALS: BP 134/58
== END 2023-09-20 17:57 ==
LOC: 2 SOUTH 21:34
PROVIDERS: Clinical Nurse Specialist Family Health; ADMITTING PHYSICIAN Hospitalist; ATTENDING PHYSICIAN Hospitalist; CONSULT PHYSICIAN Orthopaedic Surgery; EMERGENCY PHYSICIAN Emergency Medicine; FAMILY PHYSICIAN Physician Assistant Medical
DX: M25.562 Pain in left knee (principal); R26.9 Unspecified abnormalities of gait and mobility; S82.142D Displaced bicondylar fracture of left tibia, subsequent encounter for closed fracture with routine healing; W19.XXXD Unspecified fall, subsequent encounter; I10 Essential (primary) hypertension; E03.9 Hypothyroidism, unspecified; H40.9 Unspecified glaucoma; D62 Acute posthemorrhagic anemia; G89.29 Other chronic pain; M54.50 Low back pain, unspecified; J30.2 Other seasonal allergic rhinitis; M19.90 Unspecified osteoarthritis, unspecified site; E87.1 Hypo-osmolality and hyponatremia; M06.9 Rheumatoid arthritis, unspecified; F41.9 Anxiety disorder, unspecified; Z60.2 Problems related to living alone; Z86.718 Personal history of other venous thrombosis and embolism; Z82.3 Family history of stroke; Z88.0 Allergy status to penicillin; Z82.49 Family history of ischemic heart disease and other diseases of the circulatory system; Z79.890 Hormone replacement therapy; Z79.01 Long term (current) use of anticoagulants; Z79.631 Long term (current) use of antimetabolite agent; Z79.52 Long term (current) use of systemic steroids
CPT/HCPCS: 80048; 85025; 85027; 97110; 97162; 97166; 99285; G0378

== ENCOUNTER 2024-03-15 06:27 | Day surgery (SDC) | payer OTHER, SELFPAY ==
[2024-03-08 11:09] VITALS: BMI 24.0
[2024-03-08 11:26] LABS: Hematocrit 41.9 % (37.0-47.0); Hemoglobin 14.3 g/dL (12.0-16.0); Mean Corp Hgb Conc. 34.1 g/dL (33.0-37.0); Mean Corpuscular Hgb 31.6 pg (27.0-31.0); Mean Corpuscular Volume 92.5 fL (81.0-99.0); Mean Platelet Volume 10.2 fL (7.4-10.4); Platelet Count 188 10^3/uL (130-400); Red Blood Cell Count 4.53 10^6/uL (4.20-5.40); Red Cell Dist. Width 15.8 % (11.5-14.5); White Blood Cell Count 12.3 10^3/uL (4.8-10.8)
[2024-03-08 12:19] LABS: Blood Urea Nitrogen 17 mg/dl (7-17); Calcium 9.4 mg/dl (8.4-10.2); Carbon Dioxide 23 mmol/L (22-30); Chloride 102 mmol/L (98-107); Estimated Creatinine Clearance 43 ml/min; Glucose 102 mg/dl (70-99); Potassium 4.6 mmol/L (3.5-5.1); Sodium 138 mmol/L (135-145); eGFR > 60.00
[2024-03-15] VITALS (18 sets, daily range): BP systolic 142–197; BP diastolic 73–167; BMI 24.0
[2024-03-15] MEDS: CELEBREX 200 MG PO (12:05)
[2024-03-15] MEDS: ZOFRAN 4 MG IV (15:48)
[2024-03-15] MEDS: COMPAZINE 5 MG IV (17:18)
== END 2024-03-15 18:30 | disposition home or self-care (01) ==
LOC: SDS 06:27
PROVIDERS: ATTENDING PHYSICIAN Otolaryngology; FAMILY PHYSICIAN Physician Assistant Medical
DX: D11.0 Benign neoplasm of parotid gland (principal); K11.8 Other diseases of salivary glands
CPT/HCPCS: 42415; 88307; 36415; 80048; 85027; 88341; 88342; 93005; C1776; C9250

== ENCOUNTER → 2024-06-06 12:26 | Outpatient (REF) | payer OTHER, SELFPAY | LOC: RAD 12:26 | PROVIDERS: ATTENDING PHYSICIAN Surgery Vascular Surgery | DX: I82.422 Acute embolism and thrombosis of left iliac vein (principal); I87.1 Compression of vein | CPT/HCPCS: 93970; 93978 ==

== ENCOUNTER 2024-06-23 19:59 | Emergency (ER) | payer OTHER, SELFPAY ==
[2024-06-23 20:01] VITALS: BP 164/82
[2024-06-23 20:34] VITALS: BP 153/67
[2024-06-23 20:43] VITALS: BMI 25.7
--- NOTE | 2024-06-23 20:59 | ED.MUSCINJ ---
HPI-Injury
General
Chief Complaint: Fall
Source: patient
Exam Limitations: none
Time Seen by Provider: 06/23/24 20:11
Nursing documentation reviewed up to this point in time: agreed with
History of Present Illness-Injury
Is this injury a work related problem?: No
Is pt an associate of [facility]?: No
Initial Injury comments:
Patient states she was walking with her walker and fell. SHe thinks she may have tripped. Denies hitting her head. Helped up by daughter. Able to bear weight on LLE. COmplains of pain to left ant. knee. Brought to ED by EMS for eval.
Past History
Past History
ED Past Medical History: HTN, Hypothyroidism, Psychiatric (Anxiety), Other (Glaucoma, PVC's, RA, ) and Other (Chronic low back issues recently diagnosed rheumatoid arthritis. Extensive DVT)
ED Past Surgical History: Other (Left popliteal stent)
Social History
Tobacco: Non-smoker
Alcohol: None
Personal:
Living: alone
Family History
Family History: Negative Diabetes, Hypertension or CAD
Review of Systems
Review of Systems
Allergies reviewed?: Yes
All Other Systems: ROS reviewed and negative except as documented in HPI and ROS
Constitutional: Reports no symptoms
Musculoskeletal: Reports joint pain (Pain to left ant. knee)
Skin: Reports no symptoms
Neurological: Reports no symptoms
Psychiatric: Reports no symptoms
Musculoskeletal Injury Exam
Musculoskeletal Injury Exam
Left Anterior Knee:
Pain with Movement?: Moderate
Tender to palpation?: Moderate
Soft tissue swelling?: None
External deformity and angulation?: None
Joint effusion?: None
Contusion?: Moderate
Hematoma-local bleeding into tissue?: Moderate
Strain- Sprain- Tear (Connective tissue injury)?: None
Crepitus with movement?: No
Joint instability?: No
Malalignment/deformity?: No
Range of motion: Full
Distal skin color and temperature: normal-warm & good color
Capillary Refill: normal
Normal distal neurovascular exam?: Yes
Peripheral Pulses: posterior tibial (left): 3+ and dorsalis pedis (left): 3+
Phy Exam
General Physical Exam
General Presentation: well appearing and no apparent distress
General age: appears stated age
General Skin: warm and dry
General Habitus: normal
Musculoskeletal Exam
Musculoskeletal Exam: neuro vasc intact
Skin Exam
Skin Exam: normal color, warm/dry and no rash
Psychiatric Exam
Psychiatric Exam: normal mood/affect
Injury Course
Orders/Labs/Results
Orders:
Orders
06/23/24 20:05
Knee, Left 4 or More Views [CR Knee - Left 4 Or More View*] Urgent
Comment:
Reason For Exam: injury
06/23/24 20:58
Knee Immobilizer Left-Treatmen ONCE
*Radiology
Radiology exam reviewed: radiology read reviewed (No evidence of fracture)
*Pulse Oximetry
Patient hypoxic: no
*Critical Care Note
Total Time (30-74mins, 75-104mins- exclusive of procedures): Not Applicable
ED Attending Note
-
Portions of this chart may have been created with voice recognition software.� Occasional wrong word or��sound alike� substitutions may have occurred due to the inherent limitations of voice recognition software.
Discharge Plan
Departure
Patient Disposition: Home (Routine Discharge)
Date of Disposition: 06/23/24
Time of Disposition: 21:00
Patient with high blood pressure during this ER visit?: No
Condition: Good
Covid-19: Not Applicable
Discharge Problem:
Contusion of knee
Instructions: Contusion (DC), Preventing falls in adults, Using Cold for Pain
Prescriptions:
No Action
cetirizine 10 MG tablet
10 mg PO HS
levothyroxine 112 MCG tablet
112 mcg PO DAILY
metoprolol succinate 50 MG tablet extended release 24 hr
50 mg PO DAILY
methotrexate sodium 2.5 MG tablet
20 mg PO FR
folic acid 1 MG tablet
1 mg PO DAILY
irbesartan 150 MG tablet
150 mg PO DAILY
brinzolamide 1 % drops,suspension
1 drp BOTH EYES BID
brimonidine-timolol 0.2-0.5 % drops
1 drp BOTH EYES BID
Rocklatan 0.02-0.005 % drops
1 drp BOTH EYES HS
Eliquis 5 mg tablet
5 mg PO BID
Referrals:
Tyler Rivera MD [Active] - (FOllow up if your symptoms do not improve over the next week.)
Interventions
Interventions:
*Risk Screen - Suicide Last Done: 06/23/24 20:01
*General Assessment Last Done: 06/23/24 20:01
*Neglect/Abuse Screening Last Done: 06/23/24 20:01
ED- Fall Risk Assessment Last Done: 06/23/24 20:40
*ED COVID-19 Vaccine History Last Done: 06/23/24 20:01
*Nursing Disposition Last Done: 06/23/24 21:42
ED-Musculoskeletal Assessment Last Done: 06/23/24 20:39
ED- Neurological Assessment Last Done: 06/23/24 20:38
ED-Skin Assessment Last Done: 06/23/24 20:40
Discharge Date and Time
Discharge Date/Time: 06/23/24 21:43
Print Language: [place]
[2024-06-23 21:42] VITALS: BP 153/67
== END 2024-06-23 21:43 | disposition home or self-care (01) ==
LOC: EMR 19:59
PROVIDERS: EMERGENCY PHYSICIAN Emergency Medicine; FAMILY PHYSICIAN Physician Assistant Medical
DX: S80.02XA Contusion of left knee, initial encounter (principal); W19.XXXA Unspecified fall, initial encounter; I10 Essential (primary) hypertension
CPT/HCPCS: 99283; 29505; 73564

== ENCOUNTER 2024-06-26 16:25 | Emergency (ER) | payer OTHER, SELFPAY ==
[2024-06-26 16:34] VITALS: BP 171/94
--- NOTE | 2024-06-26 18:59 | ED.MUSCINJ ---
HPI-Injury
General
Chief Complaint: Fall
Source: patient
Exam Limitations: none
Time Seen by Provider: 06/26/24 18:37
History of Present Illness-Injury
Initial Injury comments:
83 year old female on Eliquis presents after mechanical fall today. She leaned over to pick something up and lost her balance and fell on her buttock first then her back of her head hit the floor. No loss of conscious. She denies any headache.
She denies a any neck pain. She does note some swelling to the left side of the head. No vision change. No other injury otherwise. No other complaints
Past History
Past History
ED Past Medical History: HTN, Hypothyroidism, Psychiatric (Anxiety), Other (Glaucoma, PVC's, RA, ) and Other (Chronic low back issues recently diagnosed rheumatoid arthritis. Extensive DVT)
ED Past Surgical History: Other (Left popliteal stent)
Social History
Tobacco: Non-smoker
Alcohol: None
Personal:
Living: alone
Family History
Family History: Negative Diabetes, Hypertension or CAD
Phy Exam
Physical Exam
Physical Exam:
General: Well-appearing female no acute respiratory distress
HEENT: Normocephalic hematoma noted to the left posterior parietal scalp pupils equal round reactive to light no raccoon eyes
Heart: Regular rate and rhythm holosystolic ejection murmur noted
Lungs: Clear no wheeze
Musculoskeletal exam: The spine is nontender good range of motion all extremities
Neurologic exam: Alert and oriented moving all extremities well
Injury Course
Orders/Labs/Results
Orders:
Orders
06/26/24 16:36
CT Head W/o Iv Contrast Urgent
Comment: on bld thinner for hx dvt
Reason For Exam: fell hit back of head
MDM/Problems Addressed
Differential Diagnosis Includes:
Mechanical fall with head strike. Consider contusion versus skull fracture versus intracranial hemorrhage. She is on Eliquis. CT of the head was ordered through triage which I reviewed and radiologist has read. There is no acute finding.
Patient reassured. She is accompanied by a friend. Patient comfortable with discharge. No indication for admission
*Critical Care Note
Total Time (30-74mins, 75-104mins- exclusive of procedures): Not Applicable
ED Attending Note
-
Portions of this chart may have been created with voice recognition software.� Occasional wrong word or��sound alike� substitutions may have occurred due to the inherent limitations of voice recognition software.
Discharge Plan
Departure
Patient Disposition: Home (Routine Discharge)
Date of Disposition: 06/26/24
Time of Disposition: 19:03
Patient with high blood pressure during this ER visit?: No
Discharge Problem:
Contusion
Instructions: Contusion (DC)
Prescriptions:
No Action
cetirizine 10 MG tablet
10 mg PO HS
levothyroxine 112 MCG tablet
112 mcg PO DAILY
metoprolol succinate 50 MG tablet extended release 24 hr
50 mg PO DAILY
methotrexate sodium 2.5 MG tablet
20 mg PO FR
folic acid 1 MG tablet
1 mg PO DAILY
irbesartan 150 MG tablet
150 mg PO DAILY
brinzolamide 1 % drops,suspension
1 drp BOTH EYES BID
brimonidine-timolol 0.2-0.5 % drops
1 drp BOTH EYES BID
Rocklatan 0.02-0.005 % drops
1 drp BOTH EYES HS
Eliquis 5 mg tablet
5 mg PO BID
Activity Restrictions/Additional Instructions:
You may ice to the sore spot. Take Tylenol if needed for pain peer return if worse otherwise follow-up your doctor if needed
Interventions
Interventions:
*Risk Screen - Suicide Last Done: 06/26/24 16:34
*General Assessment Last Done: 06/26/24 18:20
*Neglect/Abuse Screening Last Done: 06/26/24 16:34
*ED COVID-19 Vaccine History Last Done: 06/26/24 18:20
ED-Musculoskeletal Assessment Last Done: 06/26/24 18:20
ED- Neurological Assessment Last Done: 06/26/24 18:20
ED-Skin Assessment Last Done: 06/26/24 18:20
Discharge Date and Time
Print Language: [place]
== END 2024-06-26 20:29 | disposition home or self-care (01) ==
LOC: EMR 16:25
PROVIDERS: EMERGENCY PHYSICIAN Emergency Medicine; FAMILY PHYSICIAN Physician Assistant Medical
DX: S00.03XA Contusion of scalp, initial encounter (principal); W18.39XA Other fall on same level, initial encounter; I10 Essential (primary) hypertension; E03.9 Hypothyroidism, unspecified; M06.9 Rheumatoid arthritis, unspecified; Z86.718 Personal history of other venous thrombosis and embolism; Z79.01 Long term (current) use of anticoagulants
CPT/HCPCS: 99284; 70450

== ENCOUNTER → 2024-09-07 10:14 | Outpatient (REF) | payer OTHER, SELFPAY ==
[2024-09-07 11:12] LABS: % Basophils 0.8 % (0-2); % Eosinophils 2.2 % (0-6); % Immature Granulocytes 1.4 % (0-0.5); % Lymphocytes 15.3 % (20.5-51.1); % Monocytes 7.7 % (1.7-9.3); % Neutrophils 72.6 % (42.2-75.2); Absolute Basophils 0.1 10^3/uL (0-0.2); Absolute Eosinophils 0.2 10^3/uL (0-0.7); Absolute Immature Granulocytes 0.1 10^3/uL (0-0.05); Absolute Lymphocytes 1.2 10^3/uL (1.2-3.4); Absolute Monocytes 0.6 10^3/uL (0.1-0.6); Absolute Neutrophils 5.7 10^3/uL (1.4-6.5); Hematocrit 38.5 % (37.0-47.0); Hemoglobin 13.2 g/dL (12.0-16.0); Mean Corp Hgb Conc. 34.3 g/dL (33.0-37.0); Mean Corpuscular Volume 93.2 fL (81.0-99.0); Mean Platelet Volume 10.4 fL (7.4-10.4); Nucleated Red Blood Cells % 0 %; Platelet Count 151 10^3/uL (130-400); Red Blood Cell Count 4.13 10^6/uL (4.20-5.40); Red Cell Dist. Width 14.6 % (11.5-14.5); White Blood Cell Count 7.8 10^3/uL (4.8-10.8)
[2024-09-07 11:39] LABS: ALT (SGPT) < 10 U/L (0-35); AST (SGOT) 18 U/L (14-36); Albumin 3.9 g/dl (3.5-5.0); Alkaline Phosphatase 84 U/L (38-126); Blood Urea Nitrogen 11 mg/dl (7-17); Calcium 9.7 mg/dl (8.4-10.2); Carbon Dioxide 26 mmol/L (22-30); Chloride 105 mmol/L (98-107); Glucose 105 mg/dl (70-99); Potassium 4.9 mmol/L (3.5-5.1); Sodium 139 mmol/L (135-145); Total Bilirubin 1.1 mg/dl (0.2-1.3); Total Protein 6.5 g/dl (6.3-8.2); eGFR 55.55
[2024-09-07 12:32] LABS: Erythrocyte Sed Rate 9 mm/hour (0-20)
== END ==
LOC: REG 10:14
PROVIDERS: ATTENDING PHYSICIAN Student in an Organized Health Care Education/Training Program; FAMILY PHYSICIAN Physician Assistant Medical
DX: E07.9 Disorder of thyroid, unspecified (principal); E53.8 Deficiency of other specified B group vitamins; E55.9 Vitamin D deficiency, unspecified; G89.29 Other chronic pain; M05.79 Rheumatoid arthritis with rheumatoid factor of multiple sites without organ or systems involvement; M06.9 Rheumatoid arthritis, unspecified; M16.11 Unilateral primary osteoarthritis, right hip; M17.12 Unilateral primary osteoarthritis, left knee; M19.041 Primary osteoarthritis, right hand; M25.462 Effusion, left knee; M25.511 Pain in right shoulder; M25.512 Pain in left shoulder; M25.551 Pain in right hip; M47.26 Other spondylosis with radiculopathy, lumbar region; M70.52 Other bursitis of knee, left knee; M79.89 Other specified soft tissue disorders; M81.0 Age-related osteoporosis without current pathological fracture; Z79.899 Other long term (current) drug therapy
CPT/HCPCS: 36415; 80053; 85025; 85652; 86140